=== PATIENT | male | born 1990 | race American Indian/Alaskan Native ===

== ENCOUNTER 2017-09-22 14:42 | Emergency (ER) | payer SELFPAY ==
[2017-09-22 15:13] VITALS: BP 127/83
[2017-09-22 16:46] LABS: Bilirubin,Urine SM (Negative); Blood,Urine NEG (Negative); Color,Urine Yellow (Yellow); Mucus,Urine 3+ /HPF; Nitrite,Urine NEG (Negative); Protein,Urine <15 mg/dL mg/dL (Negative)
[2017-09-22 16:50] LABS: Ictotest,Urine Negative (Negative)
[2017-09-22] MEDS ORDERED: ZITHROMAX PO ONE (19:41)
[2017-09-22] MEDS ORDERED: ROCEPHIN IM ONE (19:41)
[2017-09-22] MEDS ORDERED: XYLOCAINE 1% MPF 5 mL INFILTRATI ONE (19:41)
--- NOTE | 2017-09-22 19:45 | Emergency Department Report ---
ED Male HPI - General Chief complaint: Urogenital-Male Stated complaint: PENILE PAIN Time Seen by Provider: 09/22/17 19:33 Source: patient Mode of arrival: Ambulatory Limitations: No Limitations - History of Present Illness MD Complaint: other (std exposure, likley chlamydia per history) - Related Data Previous Rx's Medication Instructions Recorded Last Taken Type Ibuprofen [Motrin] 600 mg PO Q8H PRN #30 tablet 03/24/14 Unknown Rx Doxycycline [Vibramycin CAP] 100 mg PO BID #20 capsule 03/28/16 Unknown Rx metroNIDAZOLE [Metronidazole] 1,000 mg PO BID #4 tablet 09/22/17 Unknown Rx Allergies Allergy/AdvReac Type Severity Reaction Status Date / Time No Known Allergies Allergy Verified 04/10/16 07:58 ED Review of Systems ROS: Stated complaint: PENILE PAIN Other details as noted in HPI ED Past Medical Hx - Past Medical History Hx Asthma: Yes - Surgical History Additional Surgical History: left knee surgery - Social History Smoking Status: Current Every Day Smoker Substance Use Type: None - Medications Home Medications: Home Medications Medication Instructions Recorded Confirmed Last Taken Type Ibuprofen [Motrin] 600 mg PO Q8H PRN #30 tablet 03/24/14 Unknown Rx Doxycycline [Vibramycin CAP] 100 mg PO BID #20 capsule 03/28/16 Unknown Rx metroNIDAZOLE [Metronidazole] 1,000 mg PO BID #4 tablet 09/22/17 Unknown Rx ED Physical Exam - General Limitations: No Limitations ED Course Vital Signs 09/22/17 15:09 Temperature 98.5 F Pulse Rate 86 Respiratory 14 Rate Blood Pressure 127/83 O2 Sat by Pulse 98 Oximetry ED Medical Decision Making - Medical Decision Making A/P: urethritis Critical care attestation.: If time is entered above; I have spent that time in minutes in the direct care of this critically ill patient, excluding procedure time. ED Disposition Clinical Impression: STD exposure Disposition: DC-01 TO HOME OR SELFCARE Is pt being admited?: No Does the pt Need Aspirin: No Condition: Stable Instructions: Sexually Transmitted Diseases (ED), Safe Sex (ED) Prescriptions: metroNIDAZOLE [Metronidazole] 1,000 mg PO BID #4 tablet Referrals: [facility] [Provider Group] - 3-5 Days [place] [Outside] - 3-5 Days [facility] [Outside] - 3-5 Days [facility] [place] [Outside] - 3-5 Days Time of Disposition: 19:42
== END 2017-09-22 19:56 | disposition home or self-care (01) ==
LOC: ED 14:42
DX: N34.2 Other urethritis (principal); J45.909 Unspecified asthma, uncomplicated
CPT/HCPCS: 81001; 96372; 99283; J0696

== ENCOUNTER 2018-02-28 13:33 | Emergency (ER) | payer OTHER ==
[2018-02-28 14:23] VITALS: BP 116/85
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
--- NOTE | 2018-02-28 17:15 | XRay Report ---
FINAL REPORT PROCEDURE: XR SPINE CERVICAL 2-3V TECHNIQUE: Cervical spine radiographs, AP, lateral, and open-mouth odontoid views. CPT 55138 HISTORY: bilateral cervical trapezium tenderness COMPARISON: No prior studies are available for comparison. FINDINGS: Prevertebral soft tissues: Normal . Alignment: Normal . Vertebral body heights/Disk spaces: Normal . Fracture(s): None . Facets: Normal . Bone mineralization: Normal . IMPRESSION: Negative examination
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
[2018-02-28] MEDS ORDERED: NORCO 5/325 PO ONE (17:27)
[2018-02-28] MEDS ORDERED: THERMAZENE 50 GRAM TP ONE (18:00)
== END 2018-02-28 18:19 | disposition home or self-care (01) ==
LOC: ED 13:33
DX: S22.31XA Fracture of one rib, right side, initial encounter for closed fracture (principal); S46.911A Strain of unspecified muscle, fascia and tendon at shoulder and upper arm level, right arm, initial encounter; J45.909 Unspecified asthma, uncomplicated; F17.200 Nicotine dependence, unspecified, uncomplicated; Z88.6 Allergy status to analgesic agent; V89.2XXA Person injured in unspecified motor-vehicle accident, traffic, initial encounter; W22.11XA Striking against or struck by driver side automobile airbag, initial encounter; Y93.89 Activity, other specified; Y92.89 Other specified places as the place of occurrence of the external cause; Y99.8 Other external cause status
CPT/HCPCS: 71046; 72040; 99283